=== PATIENT | male | born 1945 | race Caucasian/White ===

== ENCOUNTER 2016-06-11 09:15 | Inpatient (IN) | payer MEDICARE, OTHER ==
[~2016-06-11] VITALS: Ht 190.5 cm; Wt 137.0 kg
[2016-06-11 10:23] LABS: Albumin 3.4 g/dL (3.4-5.0); Alkaline Phosphatase 82 U/L (45-117); Anion Gap 14 (5-15); Aspartate Aminotransferase 22 U/L (15-37); BUN/Creatinine Ratio 19.9; Bilirubin, Total 2.1 mg/dL (0.2-1.0); Blood Urea Nitrogen 70 mg/dL (7-18); Carbon Dioxide 22 mmol/L (21-32); Chloride 105 mmol/L (98-107); GFR African American 22 mL/min; GFR Non-African American 18 mL/min; Glucose 137 mg/dL (74-106); Sodium 141 mmol/L (136-145); Total Protein 6.9 g/dL (6.4-8.2)
[2016-06-11] MEDS ORDERED: LEVOFLOXACIN 500MG 100 ML IV ONE (10:30)
[2016-06-11] MEDS ORDERED: SODIUM CHLORIDE 0.9% 1,000 ML IV ONE (11:30)
[2016-06-11] MEDS ORDERED: SODIUM CHLORIDE 0.9% 1,000 ML IV SCH (11:40)
[2016-06-11] MEDS ORDERED: MORPHINE SULF INJ 2 MG/ML SYRINGE 1ML IV PRN (11:45)
[2016-06-11] MEDS ORDERED: LACTULOSE 20Gm/30ML SOLN PO PRN (11:45)
[2016-06-11] MEDS ORDERED: NITROGLYCERIN 0.4 MG SL TAB SL PRN (11:45)
[2016-06-11] MEDS ORDERED: ALBUTEROL SULF 2.5 MG/0.5ML(0.5%) NEB SOLN NEB PRN (11:45)
[2016-06-11] MEDS ORDERED: DEXTROSE (50%) 50ML SYRG IV PRN (11:45)
[2016-06-11 11:53] LABS: Basophils # (auto) 0.2 uL; Basophils % (auto) 2.7 % (0.0-2.0); DEFINITIVE VIEW TRANSMISSION; Eosinophils # (auto) 0.1 uL; Eosinophils % (auto) 0.8 % (0.0-7.0); Hematocrit 29.6 % (41.0-53.0); Hemoglobin 9.7 g/dL (13.5-17.5); Lymphocytes # (auto) 0.5 uL; Lymphocytes % (auto) 7.3 % (10.0-50.0); Mean Corpuscular Hemoglobin 29.1 pg (28.0-32.0); Mean Corpuscular Hgb Conc. 32.6 g/dL (32.0-36.0); Mean Corpuscular Volume 89.2 fL (80.0-100.0); Mean Platelet Volume 9.2 fL (7.4-10.4); Monocytes # (auto) 0.4 uL; Monocytes % (auto) 5.6 % (0.0-12.0); Neutrophils % (auto) 83.6 % (37.0-80.0); Red Cell Distribution Width 19.2 % (11.6-16.0); White Blood Cell 7.2 10^3/uL (4.4-10.8)
[2016-06-11 12:23] LABS: Platelet Count (auto) 77 10^3/uL (140-450)
[2016-06-11] MEDS: ALBUTEROL SULF 2.5 MG/0.5ML(0.5%) NEB SOLN NEB SCH ×2 (12:28→19:00)
[2016-06-11] MEDS: IPRATROPIUM BROM 0.5 MG/2.5ML INH SOL NEB SCH ×2 (12:28→19:00)
[2016-06-11] MEDS ORDERED: PIPERACILLIN-TAZOB 2.25GM 50 ML IV ONE (12:30)
[2016-06-11] MEDS ORDERED: ENOXAPARIN SOD 30 MG/0.3 ML SYRINGE SC ONE (13:30)
[2016-06-11 14:08] VITALS: BP 121/58
[2016-06-11 14:31] LABS: INR 1.09 (0.9-1.15); Partial Thromboplastin Time 41.5 sec (22.64-33.71); Prothrombin Time 11.8 sec (9.37-12.3)
[2016-06-11] MEDS: LINEZOLID 600MG/300ML 300 ML IV SCH ×2 (14:44→23:08)
[2016-06-11 15:21] LABS: B-Type Natriuretic Peptide 1159.38 pg/mL (0-100); Temperature: 23.5 C (20.0-25.0)
[2016-06-11] MEDS ORDERED: ISOS30TA4 PO (16:27)
[2016-06-11] MEDS ORDERED: SIMV-8 PO (16:27)
[2016-06-11] MEDS ORDERED: HYDR-4072 PO (16:27)
[2016-06-11] MEDS ORDERED: CHOL10009 PO (16:27)
[2016-06-11] MEDS ORDERED: HYDR-2652 PO (16:27)
[2016-06-11] MEDS ORDERED: MET50T PO (16:27)
[2016-06-11] MEDS ORDERED: AMLO5TAB2 PO (16:27)
[2016-06-11] MEDS ORDERED: PANT40T PO (16:27)
[2016-06-11] MEDS ORDERED: AZI250T PO (16:27)
[2016-06-11] MEDS ORDERED: FURO40TA4 PO (16:27)
[2016-06-11] MEDS ORDERED: ERGO2000 PO (16:27)
[2016-06-11 16:40] VITALS: BP 98/61
[2016-06-11] MEDS ORDERED: PNEUMOCOCCAL VACC POLYS 25 MCG/0.5 ML VIAL IM ONE (16:45)
[2016-06-11] MEDS: ACCU-CHEK COMFORT CURVE STRIP VI SCH ×2 (17:25→22:00)
[2016-06-11] MEDS: InsuLIN REG 1unit/0.01ml Soln (100units/ml) SC SCH ×2 (17:30→23:11)
[2016-06-11] MEDS: FUROSEMIDE 40 MG/4 ML VIAL IV SCH (17:31)
[2016-06-11] MEDS: PIPERACILLIN-TAZOB 2.25GM 50 ML IV SCH (17:31)
[2016-06-11 22:00] VITALS: BP 108/55
[2016-06-12] VITALS (7 sets, daily range): BP systolic 105–142; BP diastolic 46–65
[2016-06-12] MEDS: ALBUTEROL SULF 2.5 MG/0.5ML(0.5%) NEB SOLN NEB SCH ×4 (00:35→18:41)
[2016-06-12] MEDS: IPRATROPIUM BROM 0.5 MG/2.5ML INH SOL NEB SCH ×4 (00:35→18:40)
[2016-06-12] MEDS: PIPERACILLIN-TAZOB 2.25GM 50 ML IV SCH ×4 (02:22→18:11)
[2016-06-12] MEDS: FUROSEMIDE 40 MG/4 ML VIAL IV SCH ×2 (06:00→18:11)
[2016-06-12 06:28] LABS: Basophils # (auto) 0 uL; Basophils % (auto) 0.2 % (0.0-2.0); Eosinophils # (auto) 0.1 uL; Eosinophils % (auto) 1.9 % (0.0-7.0); Hematocrit 26.9 % (41.0-53.0); Hemoglobin 8.6 g/dL (13.5-17.5); Lymphocytes # (auto) 0.5 uL; Lymphocytes % (auto) 9.5 % (10.0-50.0); Mean Corpuscular Hemoglobin 28.6 pg (28.0-32.0); Mean Corpuscular Volume 89.3 fL (80.0-100.0); Mean Platelet Volume 9.4 fL (7.4-10.4); Monocytes # (auto) 0.6 uL; Monocytes % (auto) 10.9 % (0.0-12.0); Neutrophils # (auto) 4.4 uL; Neutrophils % (auto) 77.5 % (37.0-80.0); Platelet Count (auto) 67 10^3/uL (140-450); Red Cell Distribution Width 18.8 % (11.6-16.0); White Blood Cell 5.7 10^3/uL (4.4-10.8)
[2016-06-12] MEDS: ACCU-CHEK COMFORT CURVE STRIP VI SCH ×4 (06:41→22:00)
[2016-06-12] MEDS: InsuLIN REG 1unit/0.01ml Soln (100units/ml) SC SCH ×4 (06:41→22:01)
[2016-06-12 06:59] LABS: Albumin 2.8 g/dL (3.4-5.0); Alkaline Phosphatase 68 U/L (45-117); Anion Gap 13 (5-15); Aspartate Aminotransferase 20 U/L (15-37); BUN/Creatinine Ratio 20.3; Bilirubin, Total 1.3 mg/dL (0.2-1.0); Blood Urea Nitrogen 73 mg/dL (7-18); Calcium 7.7 mg/dL (8.5-10.1); Carbon Dioxide 23 mmol/L (21-32); Chloride 104 mmol/L (98-107); Cholesterol 107 mg/dL (< 200); GFR African American 22 mL/min; GFR Non-African American 18 mL/min; Glucose 152 mg/dL (74-106); HDL Cholesterol 35 mg/dL (40-59); LDL Cholesterol 72 mg/dL (< 100); Potassium 3.9 mmol/L (3.5-5.1); Sodium 140 mmol/L (136-145); Triglycerides 82 mg/dL (< 150)
[2016-06-12 08:51] LABS: Urine RBC None Seen /hpf (0 - 3)
[2016-06-12] MEDS ORDERED: cefTRIAXone 1GM/50ML D5W 50 ML IV SCH (09:00)
[2016-06-12 09:21] LABS: Urine Bilirubin Negative (Negative); Urine Blood Negative /uL (Negative); Urine Color Yellow (Yellow); Urine Glucose Normal (Normal); Urine Hyaline Cast MOD /lpf (0 - 2); Urine Ketone Negative (Negative); Urine Nitrite Negative (Negative); Urine Squamous Epithelial Cell FEW /hpf (<5); Urine Urobilinogen Normal (Negative)
[2016-06-12] MEDS ORDERED: AZITHROMYCIN 500MG/D5W 250ML 250 ML IV SCH (10:00)
[2016-06-12] MEDS ORDERED: ENALAPRIL MALEATE 2.5 MG TAB PO SCH (10:00)
[2016-06-12] MEDS: LINEZOLID 600MG/300ML 300 ML IV SCH ×2 (10:02→22:00)
[2016-06-12] MEDS: ENOXAPARIN SOD 40 MG/0.4 ML SYRINGE SC SCH (10:08)
[2016-06-12] MEDS: Boost Glucose Control 8 Ounces PO SCH ×2 (18:29→22:00)
[2016-06-13] VITALS (14 sets, daily range): BP systolic 108–139; BP diastolic 55–81
[2016-06-13] MEDS: PIPERACILLIN-TAZOB 2.25GM 50 ML IV SCH ×4 (00:12→18:00)
[2016-06-13] MEDS: ALBUTEROL SULF 2.5 MG/0.5ML(0.5%) NEB SOLN NEB SCH ×4 (00:53→19:05)
[2016-06-13] MEDS: IPRATROPIUM BROM 0.5 MG/2.5ML INH SOL NEB SCH ×4 (00:53→19:05)
[2016-06-13] MEDS: ACCU-CHEK COMFORT CURVE STRIP VI SCH ×4 (05:22→22:12)
[2016-06-13] MEDS: InsuLIN REG 1unit/0.01ml Soln (100units/ml) SC SCH ×4 (05:32→23:23)
[2016-06-13] MEDS: FUROSEMIDE 40 MG/4 ML VIAL IV SCH ×2 (05:40→18:48)
[2016-06-13] MEDS: Boost Glucose Control 8 Ounces PO SCH ×4 (06:00→22:11)
[2016-06-13 07:03] LABS: Basophils # (auto) 0 uL; Basophils % (auto) 0.1 % (0.0-2.0); DEFINITIVE VIEW TRANSMISSION; Eosinophils # (auto) 0.1 uL; Eosinophils % (auto) 2.9 % (0.0-7.0); Hemoglobin 7.9 g/dL (13.5-17.5); Lymphocytes # (auto) 0.4 uL; Lymphocytes % (auto) 10.2 % (10.0-50.0); Mean Corpuscular Hemoglobin 29.1 pg (28.0-32.0); Mean Corpuscular Volume 88.3 fL (80.0-100.0); Mean Platelet Volume 9.8 fL (7.4-10.4); Monocytes # (auto) 0.4 uL; Monocytes % (auto) 10.2 % (0.0-12.0); Neutrophils # (auto) 2.9 uL; Neutrophils % (auto) 76.6 % (37.0-80.0); Platelet Count (auto) 48 10^3/uL (140-450); Red Cell Distribution Width 18.3 % (11.6-16.0); White Blood Cell 3.7 10^3/uL (4.4-10.8)
[2016-06-13 07:04] LABS: Albumin 2.6 g/dL (3.4-5.0); BUN/Creatinine Ratio 18.9; Calcium 7.3 mg/dL (8.5-10.1); Phosphorus 3.9 mg/dL (2.5-4.90); Potassium 3.9 mmol/L (3.5-5.1); Total Protein 5.8 g/dL (6.4-8.2)
[2016-06-13] MEDS: LINEZOLID 600MG/300ML 300 ML IV SCH ×2 (10:30→22:11)
[2016-06-13] MEDS: ENOXAPARIN SOD 40 MG/0.4 ML SYRINGE SC SCH (10:31)
[2016-06-13] MEDS: HYDROcodone-ACET 5/325MG TAB PO PRN (23:22)
[2016-06-14] MEDS: IPRATROPIUM BROM 0.5 MG/2.5ML INH SOL NEB SCH ×4 (00:44→19:55)
[2016-06-14] MEDS: ALBUTEROL SULF 2.5 MG/0.5ML(0.5%) NEB SOLN NEB SCH ×4 (00:44→19:55)
[2016-06-14] MEDS: PIPERACILLIN-TAZOB 2.25GM 50 ML IV SCH ×4 (01:27→18:20)
[2016-06-14 04:40] VITALS: BP 130/65
[2016-06-14] MEDS: FUROSEMIDE 40 MG/4 ML VIAL IV SCH ×2 (05:08→18:21)
[2016-06-14] MEDS: ACCU-CHEK COMFORT CURVE STRIP VI SCH ×3 (05:13→17:00)
[2016-06-14] MEDS: Boost Glucose Control 8 Ounces PO SCH ×3 (05:16→18:20)
[2016-06-14 05:30] LABS: Basophils # (auto) 0 uL; Basophils % (auto) 0.1 % (0.0-2.0); DEFINITIVE VIEW TRANSMISSION; Eosinophils # (auto) 0.1 uL; Eosinophils % (auto) 2.8 % (0.0-7.0); Hematocrit 28.7 % (41.0-53.0); Hemoglobin 9.4 g/dL (13.5-17.5); Lymphocytes # (auto) 0.4 uL; Lymphocytes % (auto) 9.9 % (10.0-50.0); Mean Corpuscular Hemoglobin 28.9 pg (28.0-32.0); Mean Corpuscular Hgb Conc. 32.6 g/dL (32.0-36.0); Mean Corpuscular Volume 88.7 fL (80.0-100.0); Mean Platelet Volume 9.4 fL (7.4-10.4); Monocytes # (auto) 0.5 uL; Monocytes % (auto) 11.9 % (0.0-12.0); Neutrophils # (auto) 3.1 uL; Neutrophils % (auto) 75.3 % (37.0-80.0); Platelet Count (auto) 47 10^3/uL (140-450); Red Cell Distribution Width 18.5 % (11.6-16.0); White Blood Cell 4.1 10^3/uL (4.4-10.8)
[2016-06-14 05:51] LABS: Albumin 2.5 g/dL (3.4-5.0); Bilirubin, Total 2.5 mg/dL (0.2-1.0); Calcium 7.3 mg/dL (8.5-10.1); Potassium 4.3 mmol/L (3.5-5.1); Total Protein 5.7 g/dL (6.4-8.2)
[2016-06-14] MEDS: InsuLIN REG 1unit/0.01ml Soln (100units/ml) SC SCH ×3 (05:59→17:00)
[2016-06-14 08:00] VITALS: BP 131/63
[2016-06-14] MEDS: HYDROcodone-ACET 5/325MG TAB PO PRN (08:50)
[2016-06-14] MEDS: LINEZOLID 600MG/300ML 300 ML IV SCH (08:55)
[2016-06-14] MEDS: ENOXAPARIN SOD 40 MG/0.4 ML SYRINGE SC SCH (08:55)
[2016-06-14 09:00] VITALS: BP 131/63
[2016-06-14 17:00] VITALS: BP 108/54
[2016-06-15 07:06] LABS: Vitamin D 25-Hydroxy 31 ng/mL (.); Vitamin D-2 25-Hydroxy 14 ng/mL (.)
== END 2016-06-14 22:00 | disposition short-term general hospital (02) | DRG 177 ==
LOC: ER 09:15 → TELE 09:16 → TELE-WESTW 12:48
PROVIDERS: ADMIT Internal Medicine; ATTEND Family Medicine
DX: J15.6 Pneumonia due to other Gram-negative bacteria (principal); E43 Unspecified severe protein-calorie malnutrition; N17.0 Acute kidney failure with tubular necrosis; N18.4 Chronic kidney disease, stage 4 (severe); I48.92 Unspecified atrial flutter; I13.0 Hypertensive heart and chronic kidney disease with heart failure and stage 1 through stage 4 chronic kidney disease, or unspecified chronic kidney disease; I25.10 Atherosclerotic heart disease of native coronary artery without angina pectoris; I50.9 Heart failure, unspecified; E11.21 Type 2 diabetes mellitus with diabetic nephropathy; Z95.1 Presence of aortocoronary bypass graft; I48.91 Unspecified atrial fibrillation; D50.9 Iron deficiency anemia, unspecified
CPT/HCPCS: 36415; 71010; 76775; 80053; 80061; 81001; 82306; 82550; 82728; 82962; 83036; 83540; 83550; 83605; 83735; 83880; 83970; 84100; 84443; 84484; 85025; 85610; 85652; 85730; 86850; 86900; 86901; 86920; 87040; 87070; 87205; 87340; 93005; 93306; 93971; 94640; 96365; 99291; J1815; J1956; J2543